=== PATIENT | female | born 1995 | race Caucasian/White ===

== ENCOUNTER 2020-02-09 15:08 | Emergency (ER) | payer BC ==
--- NOTE | 2020-02-09 17:15 | ED ---
Upper Extremity Pain - HPI Summary HPI Summary: Patient complains of right hand pain and swelling after punching a wall today. Denies any loss of sensation. Denies any other pain, injury or symptoms. - History of Current Complaint Chief Complaint: EDExtremityUpper Stated Complaint: RIGHT HAND INJURY PER PT Time Seen by Provider: 02/09/20 17:04 Hx Obtained From: Patient Mechanism Of Injury: Direct Blow Onset/Duration: Started Hours Ago Timing: Constant Severity Initially: Moderate Severity Currently: Mild Pain Location: Hand Character: Dull, Aching, Throbbing Aggravating Factor(s): Movement Alleviating Factor(s): Ice Associated Signs & Symptoms: Positive: Swelling, Bruising - Allergies/Home Medications Allergies/Adverse Reactions: Allergies Allergy/AdvReac Type Severity Reaction Status Date / Time No Known Allergies Allergy Verified 02/09/20 15:12 PMH/Surg Hx/FS Hx/Imm Hx Endocrine/Hematology History: Denies: Hx Anticoagulant Therapy Cardiovascular History: Denies: Hx Pacemaker/ICD History: Denies: Hx Dialysis Sensory History: Denies: Hx Eye Prosthesis Opthamlomology History: Denies: Hx Legally Blind EENT History: Denies: Hx Deafness Neurological History: Denies: Hx Dementia Infectious Disease History: No Infectious Disease History: Denies: Traveled Outside the [place] in Last 30 Days - Family History Known Family History: Positive: Non-Contributory - Social History Alcohol Use: Occasionally Hx Substance Use: No Hx Tobacco Use: No Review of Systems Constitutional: Negative Eyes: Negative ENT: Negative Cardiovascular: Negative Respiratory: Negative Gastrointestinal: Negative Genitourinary: Negative Musculoskeletal: Other Skin: Negative Neurological/Mental Status: Negative Psychological: Normal All Other Systems Reviewed And Are Negative: Yes Physical Exam - Summary Physical Exam Summary: Positive swelling and bruising to PIP of the fifth digit of right hand. No pain with flexion or extension of right elbow or right wrist. Negative snuffbox tenderness. PMS intact distally. Triage Information Reviewed: Yes Vital Signs On Initial Exam: Initial Vitals Temp Pulse Resp BP Pulse Ox 98.2 F 98 19 162/98 98 02/09/20 15:10 02/09/20 15:10 02/09/20 15:10 02/09/20 15:10 02/09/20 15:10 Vital Signs Reviewed: Yes Appearance: Positive: Well-Appearing Skin: Positive: Warm Head/Face: Positive: Normal Head/Face Inspection Eyes: Positive: Normal Neck: Positive: Supple Respiratory/Lung Sounds: Positive: Clear to Auscultation Cardiovascular: Positive: Normal Abdomen Description: Positive: Nontender Musculoskeletal: Positive: Normal Neurological: Positive: Normal Psychiatric: Positive: Normal AVPU Assessment: Alert - Donald Coma Scale Best Eye Response: 4 - Spontaneous Best Motor Response: 6 - Obeys Commands Best Verbal Response: 5 - Oriented Coma Scale Total: 15 Procedures - Sedation Patient Received Moderate/Deep Sedation with Procedure: No - Splinting 1 Location: right hand Hand-Made Type: orthoglass Splint: ulnar gutter Pre-Proc Neuro Vasc Exam: normal Post-Proc Neuro Vasc Exam: normal Diagnostics - Vital Signs Vital Signs Temp Pulse Resp BP Pulse Ox 02/09/20 17:01 99.0 F 92 19 155/87 97 02/09/20 15:10 98.2 F 98 19 162/98 98 - Laboratory Lab Statement: Any lab studies that have been ordered have been reviewed, and results considered in the medical decision making process. Course/Dx - Course Course Of Treatment: Patient complains of right hand pain and swelling after punching a wall today. Denies any loss of sensation. Denies any other pain, injury or symptoms. Vital signs within normal limits. X-ray positive for fracture of distal head of fifth metacarpal of right hand. Ulnar gutter splint placed. - Diagnoses Provider Diagnoses: Boxers fracture - Critical Care Time Critical Care Statement: Critical care time is provided exclusive of any time spent performing procedures. Discharge ED - Sign-Out/Discharge Documenting (check all that apply): Patient Departure - Discharge Plan Condition: Stable Disposition: HOME Patient Education Materials: Boxer Fracture (ED) Referrals: Alicja Santos NP [Primary Care Provider] - Miles Sims MD [Medical Doctor] - Additional Instructions: Alternate ibuprofen 600 mg with Tylenol 650 mg every 3 hours for pain. Ice 15 minutes at a time. Follow-up with orthopedics Dr. Sims for further evaluation. - Billing Disposition and Condition Condition: STABLE Disposition: Home
[2020-02-09 17:47] VITALS: BP 156/96
== END 2020-02-09 17:46 | disposition home or self-care (01) ==
LOC: ED 15:08
DX: S62.306A Unspecified fracture of fifth metacarpal bone, right hand, initial encounter for closed fracture (principal); S60.221A Contusion of right hand, initial encounter; R60.9 Edema, unspecified; W22.01XA Walked into wall, initial encounter; Y92.9 Unspecified place or not applicable
CPT/HCPCS: 99281